=== PATIENT | male | born 1955 | race Caucasian/White ===

== ENCOUNTER 2021-03-07 16:07 | Inpatient (IN) | payer MEDICARE, BC ==
[~2021-03-07] VITALS: Ht 172.7 cm; Wt 63.5 kg
[2021-03-07] MEDS ORDERED: CELE200C PO (16:51)
[2021-03-07] MEDS ORDERED: METO25TA3 PO (16:51)
[2021-03-07] MEDS ORDERED: UBID10CA4 PO (16:51)
[2021-03-07] MEDS ORDERED: ONDA4TAB5 PO (16:51)
[2021-03-07] MEDS ORDERED: PREG75CA PO (16:51)
[2021-03-07] MEDS ORDERED: METH10TA2 PO (16:51)
[2021-03-07] MEDS ORDERED: SERT50TA PO (16:51)
[2021-03-07] MEDS ORDERED: ASPI81TA31 PO (16:51)
[2021-03-07] MEDS ORDERED: PROC10TA29 PO (16:51)
[2021-03-07] MEDS ORDERED: LOVA40TA2 PO (16:51)
[2021-03-07] MEDS ORDERED: GLYC2TAB2 PO (16:51)
[2021-03-07] MEDS ORDERED: MEGE400O4 PO (16:51)
[2021-03-07] MEDS ORDERED: VITC1CAP PO (16:51)
[2021-03-07] MEDS ORDERED: OXYB5TAB29 PO (16:51)
[2021-03-07] MEDS ORDERED: DUTA1CPM PO (16:52)
[2021-03-07] MEDS ORDERED: Medication Not On Formulary EA (Prochlorperazine Maleate (Compazine) 10 MG) PO SCH (17:45)
[2021-03-07] MEDS ORDERED: ONDANSETRON HCL 4 MG TABLET PO PRN (17:45)
[2021-03-07] MEDS ORDERED: LYTE60SP PO (17:46)
[2021-03-07] MEDS ORDERED: LIDO35.4 TP (17:53)
[2021-03-07] MEDS ORDERED: NITR0.4T48 SL (17:54)
[2021-03-07] MEDS ORDERED: PROCHLORPERAZINE MALEATE 5 MG TABLET PO PRN (18:15)
--- NOTE | 2021-03-07 18:26 | NUR ---
patient admitted from [facility], brought by sister, alert, oriented x4, ambulatory, Meds verified with MD Massimo Jernigan.
[2021-03-07] MEDS ORDERED: NITROGLYCERIN 0.4 MG/TAB BOTTLE SL PRN (18:30)
[2021-03-07] MEDS ORDERED: LYTES/YERBA SANTA 240 ML BOTTLE MM PRN (18:30)
[2021-03-07] MEDS ORDERED: LIDOCAINE 5% OINT 35.44 GM TUBE TP PRN (18:30)
[2021-03-07] MEDS: PREGABALIN 25 MG CAPSULE PO SCH (18:36)
[2021-03-07 18:42] VITALS: BP 132/68
[2021-03-07] MEDS: METOPROLOL SUCCINATE XL 25 MG TAB.SR.24H PO SCH (18:44)
[2021-03-07] MEDS ORDERED: MAGIC MOUTH WASH PO PRN (18:45)
[2021-03-07] MEDS: GLYCOPYRROLATE 1 MG TABLET PO SCH (18:45)
[2021-03-07] MEDS: OXYBUTYNIN XL 5 MG TABSR PO SCH (20:20)
[2021-03-07 20:40] VITALS: BP 118/68
[2021-03-07] MEDS ORDERED: ATORVASTATIN 10 MG TABLET PO SCH (21:00)
[2021-03-07] MEDS ORDERED: Lovastatin 40 MG PO SCH (21:00)
[2021-03-07] MEDS: METHADONE HCL 10 MG TABLET PO SCH (21:07)
--- NOTE | 2021-03-07 21:25 | NUR ---
Received pt resting in bed and watching tv. AAO x4. Slurred speech due to previous oral surgery. No acute distress noted. C/o moderate pain. Pt on routine methadone. Asked Dr. Jernigan if okay to start methadone tonight instead of tomorrow morning, MD stated okay to give now. Pt on lovastatin but pharmacy doesn't carry lovastatin, pt has allergy to atorvastatin. Pt notified that he needs to bring his own med and pt verbalized understanding. Safety measures maintained. Call light within reach. Will continue to monitor.
[2021-03-08 07:30] VITALS: BP 105/56
[2021-03-08] MEDS: DUTASTERIDE 0.5 MG CAPSULE PO SCH (08:45)
[2021-03-08] MEDS: ASPIRIN 81 MG TAB.CHEW PO SCH (08:45)
[2021-03-08] MEDS: SERTRALINE HCL 50 MG TABLET PO SCH (08:46)
[2021-03-08] MEDS: PREGABALIN 25 MG CAPSULE PO SCH ×2 (08:46→17:37)
[2021-03-08] MEDS: BETA CAROTENE/VIT C & E/MIN TABLET PO SCH ×2 (08:46→17:37)
[2021-03-08] MEDS: METHADONE HCL 10 MG TABLET PO SCH ×2 (08:47→17:37)
[2021-03-08] MEDS: CELECOXIB 200 MG CAPSULE PO SCH (08:47)
[2021-03-08] MEDS: METOPROLOL SUCCINATE XL 25 MG TAB.SR.24H PO SCH ×2 (08:48→17:37)
[2021-03-08] MEDS ORDERED: UBIDECARENONE 10 MG PO SCH (09:00)
[2021-03-08] MEDS ORDERED: Medication Not On Formulary EA (Pregabalin (Lyrica) 75 MG) PO SCH (09:00)
[2021-03-08] MEDS ORDERED: TAMSULOSIN HCL 0.4 MG CAP.SR.24H PO SCH (09:00)
[2021-03-08] MEDS ORDERED: Medication Not On Formulary EA (Glycopyrrolate 1 MG) PO SCH (09:00)
[2021-03-08] MEDS ORDERED: METHADONE HCL 10 MG TABLET PO SCH (09:00)
[2021-03-08] MEDS: MEGESTROL ACETATE 400 MG/10 ML LIQUID UDC PO SCH (09:27)
[2021-03-08] MEDS: GLYCOPYRROLATE 1 MG TABLET PO SCH ×3 (09:28→17:38)
[2021-03-08] MEDS ORDERED: SIMETH PO PRN (11:15)
[2021-03-08] MEDS ORDERED: DIPHENHYDRAMINE PO PRN (11:15)
[2021-03-08] MEDS ORDERED: LIDOCAINE VISCUS PO PRN (11:15)
[2021-03-08] MEDS ORDERED: MAG HYDROX PO PRN (11:15)
[2021-03-08] MEDS ORDERED: AL HYDROX PO PRN (11:15)
--- NOTE | 2021-03-08 12:22 | NUR ---
PATIENT AND ORIENTED AND WAS NOTIFIED THAT HIS HOME MEDICATION LOVASTATIN IN NON FORMULARY HERE AND WILL NEED TO BRING THIS MEDICATION FROM HOME STATED OKAY WILL ARRANGE TO SEE WHO COULD BRING THE MEDICATION TO HIM HERE.
[2021-03-08] MEDS ORDERED: levoFLOXacin 750MG/D5W 750 MG in PREMIXED 1 EACH IV SCH (13:00)
--- NOTE | 2021-03-08 13:46 | NUR ---
PATIENT SEEN AND EXAMINED BY DR GRETEL ADAMSON WITH NEW ORDER TO START CEFTHRIAZONE AND NOTED PATIENT AWARE WILL INSERT HEPLOCK FOR THE INFUSION SOON POSSIBLE.
[2021-03-08] MEDS: CEFTRIAXONE 1 G in IV DEXTROSE 5% 50 ML IV SCH (14:48)
[2021-03-08 15:06] VITALS: BP 98/63
--- NOTE | 2021-03-08 15:09 | NUR ---
HEPLOCK INSERTED LEFT FOREARM GAUGE 20 WITH ONE ATTEMPT AND IV ATB STARTED INFUSING ORDERED PATIENT TOLERATED WELL.
--- NOTE | 2021-03-08 18:00 | NUR ---
IV ANTIBIOTICS COMPLETED ORDERED WITH NO ADVERSE OR ALLERGIC REACTIONS AT THIS TIME HEPLOCK IS INTACT TO HIS LEFT FOREARM ABLE TO AMBULATED WITH SBA TO AND FROM THE BATHROOM WILL CONTINUE TO OBSERVE
[2021-03-08 20:15] VITALS: BP 112/66
[2021-03-08] MEDS: OXYBUTYNIN XL 5 MG TABSR PO SCH (20:41)
[2021-03-08] MEDS: TAMSULOSIN HCL 0.4 MG CAP.SR.24H PO SCH (20:41)
[2021-03-09 04:18] VITALS: BP 101/79
--- NOTE | 2021-03-09 05:52 | NUR ---
Pt asleep at this time. no s/s of distress. Kept comfortable. No complaints of pain. Due meds given. Needs attended to. Safety precautions in place. Will endorse accordingly.
[2021-03-09 06:31] LABS: HEMATOCRIT 31.8 % (36.7-47.1); MEAN CORPUSCULAR HEMOGLOBIN 30.3 uug (23.8-33.4); MEAN CORPUSCULAR VOLUME 90.3 fL (73.0-96.2); PLATELET COUNT (AUTO) 211 K/uL (152-348)
[2021-03-09 06:47] LABS: CREATININE 0.9 mg/dL (0.6-1.3); MAGNESIUM 1.9 mg/dL (1.8-2.4); PHOSPHOROUS 2.9 mg/dL (2.5-4.9); POTASSIUM 4.2 mmol/L (3.5-5.1)
[2021-03-09] MEDS: METHADONE HCL 10 MG TABLET PO SCH ×2 (06:58→17:15)
--- NOTE | 2021-03-09 06:58 | NUR ---
Methadone 10mg for scheduled for 9AM administered at this time due to severe pain, per pt's request. CN informed.
[2021-03-09 07:30] VITALS: BP 113/57
[2021-03-09] MEDS: GLYCOPYRROLATE 1 MG TABLET PO SCH ×3 (08:19→17:14)
[2021-03-09] MEDS: PREGABALIN 25 MG CAPSULE PO SCH ×2 (08:19→17:14)
[2021-03-09] MEDS: ASPIRIN 81 MG TAB.CHEW PO SCH (08:19)
[2021-03-09] MEDS: BETA CAROTENE/VIT C & E/MIN TABLET PO SCH ×2 (08:19→17:15)
[2021-03-09] MEDS: MEGESTROL ACETATE 400 MG/10 ML LIQUID UDC PO SCH (08:20)
[2021-03-09] MEDS: SERTRALINE HCL 50 MG TABLET PO SCH (08:20)
[2021-03-09] MEDS: CELECOXIB 200 MG CAPSULE PO SCH (08:20)
[2021-03-09] MEDS: DUTASTERIDE 0.5 MG CAPSULE PO SCH (08:20)
[2021-03-09] MEDS: METOPROLOL SUCCINATE XL 25 MG TAB.SR.24H PO SCH ×2 (08:21→17:15)
[2021-03-09] MEDS: CEFTRIAXONE 1 G in IV DEXTROSE 5% 50 ML IV SCH (13:39)
--- NOTE | 2021-03-09 13:59 | NUR ---
SPOKE WITH PATIENT RE HIS HOME MEDICATION LORSTATIN WHICH IS NON FORMULARY HERE AT [facility] AND HE STATED THAT HIS SISTER WILL BE ABLE TO BRING IN THIS MEDICATION TOMORROW PHARMACY NOTIFIED.
--- NOTE | 2021-03-09 15:00 | NUR ---
DR JUAN DIEGO MAJANO WAS HERE TO SEE AND EXAMINE PATIENT WITH NO NEW ORDERS AT THIS TIME.
[2021-03-09 15:58] VITALS: BP 108/60
--- NOTE | 2021-03-09 18:00 | NUR ---
TOLERATED IV ANTIBIOTICS ORDERED WITH NO ADVERSE OR ALLERGIC REACTIONS AT THIS TIME.
[2021-03-09 20:30] VITALS: BP 137/70
[2021-03-09] MEDS: TAMSULOSIN HCL 0.4 MG CAP.SR.24H PO SCH (20:32)
[2021-03-09] MEDS: OXYBUTYNIN XL 5 MG TABSR PO SCH (20:33)
[2021-03-10 03:45] VITALS: BP 130/68
[2021-03-10] MEDS: METHADONE HCL 10 MG TABLET PO SCH ×3 (06:24→21:59)
[2021-03-10 08:00] VITALS: BP 105/63
[2021-03-10] MEDS: ASPIRIN 81 MG TAB.CHEW PO SCH (09:01)
[2021-03-10] MEDS: DUTASTERIDE 0.5 MG CAPSULE PO SCH (09:01)
[2021-03-10] MEDS: SERTRALINE HCL 50 MG TABLET PO SCH (09:04)
[2021-03-10] MEDS: BETA CAROTENE/VIT C & E/MIN TABLET PO SCH ×2 (09:04→17:59)
[2021-03-10] MEDS: MEGESTROL ACETATE 400 MG/10 ML LIQUID UDC PO SCH (09:04)
[2021-03-10] MEDS: PREGABALIN 25 MG CAPSULE PO SCH ×3 (09:04→21:59)
[2021-03-10] MEDS: METOPROLOL SUCCINATE XL 25 MG TAB.SR.24H PO SCH ×2 (09:04→17:59)
[2021-03-10] MEDS: CELECOXIB 200 MG CAPSULE PO SCH (09:04)
[2021-03-10] MEDS: GLYCOPYRROLATE 1 MG TABLET PO SCH ×3 (09:05→17:59)
--- NOTE | 2021-03-10 13:39 | NUR ---
INTERDISCIPLINARY TEAM CONFERENCE
[2021-03-10] MEDS: CEFTRIAXONE 1 G in IV DEXTROSE 5% 50 ML IV SCH (13:40)
--- NOTE | 2021-03-10 14:24 | NUR ---
INDIVIDUALIZED PLAN OF CARE
[2021-03-10 15:52] VITALS: BP 109/65
[2021-03-10] MEDS: ENSURE ENLIVE (VAN) 240 ML LIQUID PO SCH (17:59)
[2021-03-10 20:05] VITALS: BP 108/65
[2021-03-10] MEDS: TAMSULOSIN HCL 0.4 MG CAP.SR.24H PO SCH (20:45)
[2021-03-10] MEDS: OXYBUTYNIN XL 5 MG TABSR PO SCH (20:47)
[2021-03-11 04:13] VITALS: BP 119/58
[2021-03-11] MEDS: PREGABALIN 25 MG CAPSULE PO SCH ×3 (05:12→21:19)
[2021-03-11] MEDS: METHADONE HCL 10 MG TABLET PO SCH ×3 (05:13→22:03)
--- NOTE | 2021-03-11 06:34 | NUR ---
Shift End Report: Slept well. All needs attended and met. No complaint presented.Continue care as planned.
[2021-03-11 08:02] VITALS: BP 122/64
[2021-03-11] MEDS: SERTRALINE HCL 50 MG TABLET PO SCH (08:48)
[2021-03-11] MEDS: BETA CAROTENE/VIT C & E/MIN TABLET PO SCH ×2 (08:48→16:35)
[2021-03-11] MEDS: CELECOXIB 200 MG CAPSULE PO SCH (08:48)
[2021-03-11] MEDS: ASPIRIN 81 MG TAB.CHEW PO SCH (08:48)
[2021-03-11] MEDS: DUTASTERIDE 0.5 MG CAPSULE PO SCH (08:48)
[2021-03-11] MEDS: METOPROLOL SUCCINATE XL 25 MG TAB.SR.24H PO SCH ×2 (08:48→16:55)
[2021-03-11] MEDS: ENSURE ENLIVE (VAN) 240 ML LIQUID PO SCH ×2 (08:49→16:33)
[2021-03-11] MEDS: MEGESTROL ACETATE 400 MG/10 ML LIQUID UDC PO SCH (08:50)
[2021-03-11] MEDS: GLYCOPYRROLATE 1 MG TABLET PO SCH ×3 (08:50→16:38)
[2021-03-11] MEDS: MEVACOR PO SCH (08:50)
[2021-03-11] MEDS: CEFTRIAXONE 1 G in IV DEXTROSE 5% 50 ML IV SCH (13:19)
[2021-03-11 15:34] VITALS: BP 130/85
[2021-03-11 20:15] VITALS: BP 104/54
[2021-03-11] MEDS: TAMSULOSIN HCL 0.4 MG CAP.SR.24H PO SCH (21:20)
[2021-03-11] MEDS: OXYBUTYNIN XL 5 MG TABSR PO SCH (21:20)
--- NOTE | 2021-03-11 22:59 | NUR ---
Received pt resting in bed, watching tv. AAO x4. Slurred speech due to previous oral surgery. No acute distress noted. C/o moderate pain. Pt on routine methadone, All due meds administered as ordered. appears adequately hydrated. Safety precautions observed. Call light with in reach. continue plan of care.
[2021-03-12 04:35] VITALS: BP 97/52
[2021-03-12] MEDS: PREGABALIN 25 MG CAPSULE PO SCH ×2 (05:23→16:59)
--- NOTE | 2021-03-12 05:41 | NUR ---
shift end report: no acute distress or discomfort noted, all due medication given as ordered. Continue with same plan of care.will endorse accordingly to AM nurse.
[2021-03-12] MEDS: METHADONE HCL 10 MG TABLET PO SCH ×3 (05:53→21:20)
[2021-03-12 08:00] VITALS: BP 112/48
[2021-03-12] MEDS: ASPIRIN 81 MG TAB.CHEW PO SCH (08:21)
[2021-03-12] MEDS: BETA CAROTENE/VIT C & E/MIN TABLET PO SCH ×2 (08:21→16:58)
[2021-03-12] MEDS: CELECOXIB 200 MG CAPSULE PO SCH (08:21)
[2021-03-12] MEDS: DUTASTERIDE 0.5 MG CAPSULE PO SCH (08:21)
[2021-03-12] MEDS: GLYCOPYRROLATE 1 MG TABLET PO SCH ×3 (08:22→17:01)
[2021-03-12] MEDS: SERTRALINE HCL 50 MG TABLET PO SCH (08:22)
[2021-03-12] MEDS: METOPROLOL SUCCINATE XL 25 MG TAB.SR.24H PO SCH ×2 (08:22→16:59)
[2021-03-12] MEDS: MEVACOR PO SCH (08:23)
[2021-03-12] MEDS: MEGESTROL ACETATE 400 MG/10 ML LIQUID UDC PO SCH (08:23)
[2021-03-12] MEDS: ENSURE ENLIVE (VAN) 240 ML LIQUID PO SCH ×2 (08:24→17:07)
--- NOTE | 2021-03-12 12:23 | NUR ---
Patient seen by Dr. Massimo Jernigan with pt's sister at bedside. Informed MD regarding episode of orthostatic hypotension with PT and complain of dizziness. No new order per MD, advised increased fluid intake, and said to inform Dr. Malcolm for the need to adjust current pain medications.
--- NOTE | 2021-03-12 13:48 | NUR ---
Patient seen by Dr. Malcolm, update given to MD and notified regarding hypotensive episode during PT and complain of dizziness. MD ordered decrease Lyrica 75mg PO to BID.
[2021-03-12 16:00] VITALS: BP 97/54
[2021-03-12 20:00] VITALS: BP 93/60
[2021-03-12] MEDS: TAMSULOSIN HCL 0.4 MG CAP.SR.24H PO SCH (20:31)
[2021-03-12] MEDS: OXYBUTYNIN XL 5 MG TABSR PO SCH (20:32)
[2021-03-13 04:00] VITALS: BP 116/75
[2021-03-13 05:42] LABS: HEMATOCRIT 29.8 % (36.7-47.1); MEAN CORPUSCULAR HEMOGLOBIN 30.9 uug (23.8-33.4); MEAN CORPUSCULAR VOLUME 91.3 fL (73.0-96.2); PLATELET COUNT (AUTO) 202 K/uL (152-348)
[2021-03-13] MEDS: METHADONE HCL 10 MG TABLET PO SCH ×3 (05:53→22:19)
--- NOTE | 2021-03-13 06:37 | NUR ---
PATIENT ALERT ORIENTED, CONT ON PAIN MANAGEMENT DUE PAIN ON LEFT FACE MOUTH AREA, PAIN MEDICATIONS EFFECTIVE, PATIENT ABLE TO SWALLOW MEDICATION AND WATER SLOWLY, TOLERATE WELL, CALL LIGHT WITHIN REACH, CONT TO MONITOR.
[2021-03-13 07:24] LABS: CREATININE 0.9 mg/dL (0.6-1.3); MAGNESIUM 2.1 mg/dL (1.8-2.4); PHOSPHOROUS 3.3 mg/dL (2.5-4.9); POTASSIUM 3.8 mmol/L (3.5-5.1)
[2021-03-13 08:07] VITALS: BP 116/62
[2021-03-13] MEDS: CELECOXIB 200 MG CAPSULE PO SCH (08:15)
[2021-03-13] MEDS: BETA CAROTENE/VIT C & E/MIN TABLET PO SCH ×2 (08:15→16:28)
[2021-03-13] MEDS: PREGABALIN 25 MG CAPSULE PO SCH ×2 (08:15→16:23)
[2021-03-13] MEDS: ASPIRIN 81 MG TAB.CHEW PO SCH (08:16)
[2021-03-13] MEDS: DUTASTERIDE 0.5 MG CAPSULE PO SCH (08:16)
[2021-03-13] MEDS: SERTRALINE HCL 50 MG TABLET PO SCH (08:16)
[2021-03-13] MEDS: ENSURE ENLIVE (VAN) 240 ML LIQUID PO SCH ×2 (08:16→16:23)
[2021-03-13] MEDS: METOPROLOL SUCCINATE XL 25 MG TAB.SR.24H PO SCH ×2 (08:17→16:29)
[2021-03-13] MEDS: MEVACOR PO SCH (08:22)
[2021-03-13] MEDS: GLYCOPYRROLATE 1 MG TABLET PO SCH ×3 (08:22→16:26)
[2021-03-13] MEDS: MEGESTROL ACETATE 400 MG/10 ML LIQUID UDC PO SCH (08:23)
[2021-03-13 15:25] VITALS: BP 120/60
--- NOTE | 2021-03-13 15:51 | NUR ---
patient is alert, oriented x4, no distress noted, participated with PT, OT, tolerated well.
--- NOTE | 2021-03-13 16:13 | NUR ---
INDIVIDUALIZED PLAN OF CARE
--- NOTE | 2021-03-13 19:30 | NUR ---
Received pt in bed, A&Ox4, verbally responsive, able to make needs known. No signs of acute distress. Safety measures initiated, call light and belongings within reach.
[2021-03-13] MEDS: TAMSULOSIN HCL 0.4 MG CAP.SR.24H PO SCH (20:29)
[2021-03-13] MEDS: OXYBUTYNIN XL 5 MG TABSR PO SCH (20:29)
[2021-03-13] MEDS: OXYCODONE HCL 5 MG TABLET PO PRN (20:30)
[2021-03-13 20:40] VITALS: BP 101/59
[2021-03-14 04:30] VITALS: BP 127/67
[2021-03-14] MEDS: OXYCODONE HCL 5 MG TABLET PO PRN (04:30)
[2021-03-14] MEDS: METHADONE HCL 10 MG TABLET PO SCH ×3 (06:12→20:44)
--- NOTE | 2021-03-14 06:13 | NUR ---
Slept through the night, no signs of distress noted. Tolerated medications well. No significant change in condition noted. Safety measures maintained at all times. All needs attended to and met.
--- NOTE | 2021-03-14 07:25 | NUR ---
received patient alert/orientedx4, Denies discomfort. No distress identified. IV site intact. Will continue to monitor.
[2021-03-14 08:00] VITALS: BP 121/65
[2021-03-14] MEDS: PREGABALIN 25 MG CAPSULE PO SCH (09:05)
[2021-03-14] MEDS: ASPIRIN 81 MG TAB.CHEW PO SCH (09:05)
[2021-03-14] MEDS: SERTRALINE HCL 50 MG TABLET PO SCH (09:06)
[2021-03-14] MEDS: CELECOXIB 200 MG CAPSULE PO SCH (09:07)
[2021-03-14] MEDS: DUTASTERIDE 0.5 MG CAPSULE PO SCH (09:07)
[2021-03-14] MEDS: METOPROLOL SUCCINATE XL 25 MG TAB.SR.24H PO SCH ×2 (09:07→17:03)
[2021-03-14] MEDS: GLYCOPYRROLATE 1 MG TABLET PO SCH ×3 (09:07→17:03)
[2021-03-14] MEDS: MEGESTROL ACETATE 400 MG/10 ML LIQUID UDC PO SCH (09:07)
[2021-03-14] MEDS: BETA CAROTENE/VIT C & E/MIN TABLET PO SCH ×2 (09:07→17:03)
[2021-03-14] MEDS: ENSURE ENLIVE (VAN) 240 ML LIQUID PO SCH ×2 (09:11→17:03)
[2021-03-14] MEDS: MEVACOR PO SCH (09:11)
[2021-03-14 16:36] VITALS: BP 109/62
--- NOTE | 2021-03-14 18:38 | NUR ---
Patient denies discomfort during the shift. All due meds given. All needs attended. Kept comfortable. Call light within reach. Frequent checks done. Will continue to monitor for any significant changes.
[2021-03-14 20:24] VITALS: BP 114/72
[2021-03-14] MEDS: TAMSULOSIN HCL 0.4 MG CAP.SR.24H PO SCH (20:43)
[2021-03-14] MEDS: OXYBUTYNIN XL 5 MG TABSR PO SCH (20:43)
[2021-03-14] MEDS: PREGABALIN 50 MG CAPSULE PO SCH (20:44)
[2021-03-15 04:21] VITALS: BP 117/93
[2021-03-15] MEDS: PREGABALIN 50 MG CAPSULE PO SCH ×2 (05:06→13:19)
[2021-03-15] MEDS: METHADONE HCL 10 MG TABLET PO SCH ×2 (05:06→13:20)
[2021-03-15 06:25] LABS: HEMATOCRIT 28.9 % (36.7-47.1); MEAN CORPUSCULAR HEMOGLOBIN 30.3 uug (23.8-33.4); MEAN CORPUSCULAR VOLUME 91.3 fL (73.0-96.2); PLATELET COUNT (AUTO) 209 K/uL (152-348)
--- NOTE | 2021-03-15 06:33 | NUR ---
Patient stated he has discomfort around his oral cavity, noted with strong odor. He stated the routine pain medication remained effective. Monitored for any significant changes. All due meds given. All needs attended. Kept comfortable. Call light within reach. Frequent checks done. Will continue to monitor and endorse.
[2021-03-15 06:39] LABS: PHOSPHOROUS 3.3 mg/dL (2.5-4.9); POTASSIUM 4.1 mmol/L (3.5-5.1)
[2021-03-15 08:00] VITALS: BP 105/59
[2021-03-15] MEDS: SERTRALINE HCL 50 MG TABLET PO SCH (08:58)
[2021-03-15] MEDS: DUTASTERIDE 0.5 MG CAPSULE PO SCH (08:58)
[2021-03-15] MEDS: GLYCOPYRROLATE 1 MG TABLET PO SCH ×3 (08:58→16:58)
[2021-03-15] MEDS: ASPIRIN 81 MG TAB.CHEW PO SCH (08:58)
[2021-03-15] MEDS: CELECOXIB 200 MG CAPSULE PO SCH (08:58)
[2021-03-15] MEDS: MEGESTROL ACETATE 400 MG/10 ML LIQUID UDC PO SCH (08:59)
[2021-03-15] MEDS: MEVACOR PO SCH (08:59)
[2021-03-15] MEDS: METOPROLOL SUCCINATE XL 25 MG TAB.SR.24H PO SCH ×2 (09:00→17:00)
[2021-03-15] MEDS: ENSURE ENLIVE (VAN) 240 ML LIQUID PO SCH ×2 (09:05→17:04)
[2021-03-15] MEDS: BETA CAROTENE/VIT C & E/MIN TABLET PO SCH ×2 (10:06→16:58)
[2021-03-15 16:43] VITALS: BP 107/65
[2021-03-15 17:00] VITALS: BP 107/65
--- NOTE | 2021-03-15 17:00 | NUR ---
Discharge order to home with home health received from Dr. Rina Terry
--- NOTE | 2021-03-15 19:00 | NUR ---
Discharge instructions provided to the patient and sister Lisa at bedside with verbalized understanding. He remains alert, oriented x 4, not in any form of distress. He denies any pain or discomfort at this time. Vital signs stable. Discharge papers signed by and given to the patient including prescription. Patient seen by Dr. Rina Terry and MD gave electronic prescription for Lyrica and Methadone to patient's preferred pharmacy. All belongings well accounted for. Assisted patient to the lobby via wheelchair. Patient picked up by sister Lisa via private car. Addendum: 03/15/21 at 2038 by DERECK LOVING RN RN Patient's own home medications given back to patient and brought home.
== END 2021-03-15 20:12 | disposition home health service (06) | DRG 640 ==
PROVIDERS: ADMIT Physical Medicine & Rehabilitation Pain Medicine; ATTEND Physical Medicine & Rehabilitation Pain Medicine
DX: R62.7 Adult failure to thrive (principal); E43 Unspecified severe protein-calorie malnutrition; G72.81 Critical illness myopathy; I25.3 Aneurysm of heart; E78.5 Hyperlipidemia, unspecified; G62.9 Polyneuropathy, unspecified; I25.10 Atherosclerotic heart disease of native coronary artery without angina pectoris; I10 Essential (primary) hypertension; J02.9 Acute pharyngitis, unspecified; R51.9 Headache, unspecified; R13.10 Dysphagia, unspecified; Z85.819 Personal history of malignant neoplasm of unspecified site of lip, oral cavity, and pharynx; Z87.891 Personal history of nicotine dependence; Z92.3 Personal history of irradiation; Z95.5 Presence of coronary angioplasty implant and graft; R53.1 Weakness; Z88.1 Allergy status to other antibiotic agents; Z88.5 Allergy status to narcotic agent; Z88.8 Allergy status to other drugs, medicaments and biological substances; Z82.49 Family history of ischemic heart disease and other diseases of the circulatory system; G72.9 Myopathy, unspecified
CPT/HCPCS: 36415; 83550; 83735; 84100; 85025; 97161; A4663; A9155; J0696; J7050; J7060; J8499; J8999; Q0163